=== PATIENT | male | born 1955 | race Caucasian/White ===

== ENCOUNTER 2023-06-14 15:50 | Emergency (ER) | payer OTHER ==
[~2023-06-14] VITALS: Ht 180.3 cm; Wt 102.1 kg
[~2023-06-14 15:50] MED LIST: NO MEDS. REPORTED
[2023-06-14] MEDS ORDERED: HYDROCODONE/APAP 5/325MG TABLET ONE (16:44)
[2023-06-14] MEDS: HYDROCODONE/APAP 5/325MG TABLET PO ONE (16:46)
[2023-06-14] MEDS ORDERED: IBUP-1955 PO ×2 (17:52→18:19)
[2023-06-14] MEDS ORDERED: HYDR-3976 PO ×2 (17:52→18:19)
[2023-06-14 18:32] VITALS: BP 132/75; TEMP 98.2; O2SAT 100
== END 2023-06-14 18:32 | disposition home or self-care (01) ==
LOC: ER 15:51
DX: S52.572A Other intraarticular fracture of lower end of left radius, initial encounter for closed fracture (principal); Z79.899 Other long term (current) drug therapy; Z60.2 Problems related to living alone; Z88.0 Allergy status to penicillin; W01.0XXA Fall on same level from slipping, tripping and stumbling without subsequent striking against object, initial encounter; Y93.E3 Activity, vacuuming; Y92.89 Other specified places as the place of occurrence of the external cause; Y99.8 Other external cause status
CPT/HCPCS: 73090-TC; 73110